=== PATIENT | female | born 1990 | race Two or more races ===

== ENCOUNTER 2022-11-26 06:20 | Inpatient (IN) ==
[2022-11-26] MEDS ORDERED: LR 1,000 ML IV 1,000 ML IV ONE ×2 (06:37→07:56)
[2022-11-26] MEDS ORDERED: ANCEF VIAL 1 GRAM ONE (06:37)
[2022-11-26] MEDS ORDERED: NS 100 ML IV 100 ML ONE (06:38)
[2022-11-26] MEDS ORDERED: ANCEF VIAL 1 GRAM IVP ONE (07:10)
[2022-11-26] MEDS: LR 1,000 ML IV 1,000 ML IV ONE ×2 (07:21→07:25)
[2022-11-26] MEDS ORDERED: D5 1/2 NS 1,000 mL + PITOCIN 20 UNITS/L IV 20 UNITS/1,000 ML BAG IV ONE (07:27)
[2022-11-26] MEDS ORDERED: PEPCID 20 MG VIAL ONE (07:30)
[2022-11-26] MEDS ORDERED: REGLAN INJ 10 MG VIAL ONE (07:30)
[2022-11-26] MEDS ORDERED: ZOFRAN INJ 4 MG VIAL ONE (07:30)
[2022-11-26] MEDS ORDERED: DILAUDID INJ ONE (07:34)
[2022-11-26] MEDS ORDERED: MARCAINE SPINAL ONE (07:34)
[2022-11-26] MEDS ORDERED: EPHEDRINE SULFATE INJ ONE (07:36)
[2022-11-26] MEDS ORDERED: OFIRMEV IV 1000 MG VIAL 1,000 MG/100 ML VIAL IV ONE (07:50)
[2022-11-26] MEDS ORDERED: TORADOL 30 MG VIAL ONE (07:50)
[2022-11-26] MEDS ORDERED: NEO-SYNEPHRINE INJ ONE (08:09)
[2022-11-26] MEDS ORDERED: DECADRON INJ ONE (08:09)
[2022-11-26] MEDS ORDERED: ROBINUL ONE (08:11)
[2022-11-26] MEDS ORDERED: PITOCIN ONE (08:33)
[2022-11-26] MEDS ORDERED: BENADRYL INJ 50 MG VIAL ONE (08:49)
[2022-11-26] MEDS ORDERED: VERSED ONE (08:57)
[2022-11-26] MEDS ORDERED: DILAUDID INJ IVP PRN (09:17)
[2022-11-26] MEDS ORDERED: ZOFRAN INJ 4 MG VIAL IVP PRN ×2 (09:17→09:35)
[2022-11-26] MEDS ORDERED: REGLAN INJ 10 MG VIAL IVP PRN (09:35)
[2022-11-26] MEDS ORDERED: MYLICON TAB 80 MG CHEW PO PRN (09:35)
[2022-11-26] MEDS ORDERED: PERCOCET TAB 5/325 MG PO PRN (09:35)
[2022-11-26] MEDS ORDERED: NARCAN INJ IVP PRN (09:35)
[2022-11-26] MEDS ORDERED: PHENERGAN INJ 25 MG IM PRN (09:35)
[2022-11-26] MEDS ORDERED: D5 1/2 NS 1,000 ML 1,000 ML with PITOCIN 20 UNITS IV SCH ×2 (09:35)
[2022-11-26] MEDS ORDERED: XYLOCAINE 2 % (PLAIN) ONE (10:27)
[2022-11-26] MEDS: MOTRIN TAB 800 MG PO SCH ×3 (11:40→22:24)
[2022-11-26] MEDS: PRENATAL PLUS PO SCH (11:41)
[2022-11-26] MEDS: MILK OF MAGNESIA PO SCH (11:41)
[2022-11-26] MEDS ORDERED: STERILE WATER IRRIGATION IR ONE (15:04)
[2022-11-26] MEDS: COLACE CAP 100 MG PO SCH (22:23)
[2022-11-27] MEDS: MOTRIN TAB 800 MG PO SCH ×4 (04:32→21:55)
[2022-11-27 06:15] LABS: HEMATOCRIT 23.6 % (36.0-47.0); HEMOGLOBIN 7.6 g/dL (12.0-16.0)
[2022-11-27] MEDS ORDERED: PERCOCET TAB 5/325 MG PO PRN (07:00)
[2022-11-27] MEDS: PRENATAL PLUS PO SCH (08:12)
[2022-11-27] MEDS: MILK OF MAGNESIA PO SCH (08:12)
[2022-11-27] MEDS ORDERED: NS 100 ML IV 100 ML with VENOFER 400 MG IV NR ×2 (09:38)
[2022-11-27] MEDS: COLACE CAP 100 MG PO SCH (20:12)
[2022-11-28] MEDS: MOTRIN TAB 800 MG PO SCH ×2 (03:39→09:47)
[2022-11-28] MEDS: MILK OF MAGNESIA PO SCH (08:14)
[2022-11-28] MEDS: PRENATAL PLUS PO SCH (08:14)
[2022-11-28 08:32] VITALS: BP 140/82
== END 2022-11-28 10:52 | disposition home or self-care (01) | DRG 788 ==
LOC: LD 06:20 → EDUNIT# 07:30 → MED/SURG 09:45
PROVIDERS: ADMIT Obstetrics & Gynecology Obstetrics; ATTEND Obstetrics & Gynecology Obstetrics
DX: N85.8 Other specified noninflammatory disorders of uterus; Z3A.39 39 weeks gestation of pregnancy; O34.211 Maternal care for low transverse scar from previous cesarean delivery; O24.419 Gestational diabetes mellitus in pregnancy, unspecified control; Z37.0 Single live birth